=== PATIENT | female | born 1995 | race Two or more races ===

== ENCOUNTER → 2019-10-15 | Outpatient (CLI) | payer MEDICAID ==
--- NOTE | 2019-10-15 15:31 | RAD ---
EXAM: Obstetrics sonogram. HISTORY: Pain. TECHNIQUE: Sonographic imaging of a gravid uterus was performed. COMPARISON: None. FINDINGS: The uterus measures 12.5 x 8.9 x 7.1 cm. There is a single intrauterine gestational sac and pole. The crown-rump length is 5.1 cm, corresponding with a gestational age of 11 weeks and 6 days. There is a normal heart rate of 162 bpm. The ovaries are normal in size and demonstrate normal blood flow. The cervix is closed and normal in length, measuring 3.2 cm. IMPRESSION: 1. Single imaging fetus with normal heart rate and gestational age patient ultrasound measurements of 11 weeks and 6 days. 2. Otherwise, unremarkable pelvic sonogram. Electronically signed by: Elli Teran MD (10/15/2019 3:28 PM) [id number]
== END ==
LOC: US 14:01
PROVIDERS: ATTEND Obstetrics & Gynecology
DX: O26.891 Other specified pregnancy related conditions, first trimester (principal); R10.2 Pelvic and perineal pain; Z3A.11 11 weeks gestation of pregnancy
CPT/HCPCS: 76801